=== PATIENT | female | born 1960 | race Caucasian/White ===

== ENCOUNTER 2024-06-16 06:19 | Day surgery (SDC) | payer OTHER, SELFPAY | END 2024-06-16 09:19 | disposition home or self-care (01) | LOC: GI 06:19 | PROVIDERS: ATTENDING PHYSICIAN Internal Medicine Gastroenterology | DX: Z12.11 Encounter for screening for malignant neoplasm of colon (principal); K57.30 Diverticulosis of large intestine without perforation or abscess without bleeding; K64.8 Other hemorrhoids; R11.0 Nausea; Z83.719 Family history of colon polyps, unspecified; Z87.11 Personal history of peptic ulcer disease | CPT/HCPCS: 43239; G0105; 88305; 88342 ==